=== PATIENT | female | born 1995 | race Hispanic/Latino ===

== ENCOUNTER 2017-11-19 18:07 | Emergency (ER) | payer SELFPAY ==
[2017-11-19 18:16] VITALS: BP 123/90; PULSE 78; RESP 16; TEMP 97.8; O2SAT 99
[2017-11-19 21:43] LABS: MEAN CELL VOLUME 88.6 fl (81.0-99.0); MEAN CORPUSCULAR HEMOGLOBIN 29.6 pg (27.0-31.0); MEAN CORPUSCULAR HGB CONC 33.4 g/dL (33.0-37.0); RBC 4.38 Mil/uL (3.80-5.20); RED CELL DISTRIBUTION WIDTH 12.7 % (11.5-14.5); WHITE BLOOD COUNT 8.6 K/uL (4.8-10.8)
--- NOTE | 2017-11-19 21:54 | ED PDOC ---
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 Patient admits to occasional dizziness but denies weakness, headache, or vision change. PMD: None Provided Past Medical History Reviewed: Historical Data, Nursing Documentation, Vital Signs Vital Signs: Last Vital Signs Temp 97.8 F 11/19/17 18:13 Pulse 78 11/19/17 18:13 Resp 16 11/19/17 18:13 BP 123/90 11/19/17 18:13 Pulse Ox 99 11/19/17 18:13 - Medical History Other PMH: bening brain cyst - Family History Family History: States: Unknown Family Hx - Allergies Allergies/Adverse Reactions: Allergies Allergy/AdvReac Type Severity Reaction Status Date / Time No Known Allergies Allergy Verified 11/19/17 18:12 Review of Systems ROS Statement: Except As Marked, All Systems Reviewed And Found Negative Neurological: Positive for: Dizziness (occasional), Other (tingling upper and lower extremities b/l) Physical Exam - Reviewed Nursing Documentation Reviewed: Yes Vital Signs Reviewed: Yes - Physical Exam Appears: Positive for: Well, Non-toxic, No Acute Distress Skin: Positive for: Normal Color, Warm, DRY Eye Exam: Positive for: EOMI, Normal appearance, PERRL ENT: Positive for: Normal ENT Inspection Neck: Positive for: Normal, Painless ROM Cardiovascular/Chest: Positive for: Regular Rate, Rhythm. Negative for: Murmur Respiratory: Positive for: Normal Breath Sounds. Negative for: Respiratory Distress Gastrointestinal/Abdominal: Positive for: Normal Exam, Bowel Sounds, Soft Neurologic/Psych: Positive for: Alert, correctional lieutenant II-XII, Oriented. Negative for: Motor/Sensory Deficits, Cerebellar Tests, Gait, Aphasia, Facial Droop - Laboratory Results Result Diagrams: 11/19/17 21:39 11/19/17 21:39 - ECG O2 Sat by Pulse Oximetry: 99 (RA) Pulse Ox Interpretation: Normal Medical Decision Making Medical Decision Making: Time: 21:25 Initial Impression: Paresthesias Initial Plan: --CT Head w/o Contrast --BMP --CBC CT Head: FINDINGS: Brain: 1 cm low density structure is noted in the left temporal lobe. No significant white matter disease.Streak artifact limits evaluation of the skull base. No evidence of acute intracranial hemorrhage. Correlate clinically. Ventricles: Unremarkable. No ventriculomegaly. Bones/joints: No displaced fracture. Soft tissues: Unremarkable. Sinuses: Unremarkable as visualized. No acute sinusitis. Mastoid air cells: Unremarkable as visualized. No mastoid effusion. IMPRESSION: Streak artifact limits evaluation of the skull base. No evidence of acute intracranial hemorrhage. Correlate clinically. Thank you for allowing us to participate in the care of your patient. Dictated and Authenticated by: Rosita Colon 11/19/2017 11:03 PM Eastern Time ([place] & [place]) 2300 Pt informed of results, instructed to consume more potassium containing foods. Advised to f/u w/ her PMD and neuro as needed. Return precautions discussed. Scribe Attestation: Documented by Hermilo Allison & Karen Brannon, acting as scribes for Dr. Giacomo Matias MD. Provider Scribe Attestation: All medical record entries made by the Scribe were at my direction and personally dictated by me. I have reviewed the chart and agree that the record accurately reflects my personal performance of the history, physical exam, medical decision making, and the department course for this patient. I have also personally directed, reviewed, and agree with the discharge instructions and disposition. Disposition - Clinical Impression Clinical Impression: Paresthesia - Disposition Referrals: Desmond Shin MD [Medical Doctor] - Disposition Time: 23:00 Condition: STABLE Instructions: Paresthesia (ED) Forms: [facility] (Czech)
[2017-11-19 22:01] LABS: BLOOD UREA NITROGEN 11 mg/dl (7-17); CALCIUM 9.3 mg/dL (8.4-10.2); GFR AFRICAN-AMERICAN > 60; GFR NON-AFRICAN AMERICAN > 60
--- NOTE | 2017-11-20 09:25 | CT ---
PROCEDURE: CT HEAD WITHOUT CONTRAST. HISTORY: hx of "benign brain cyst", numbness in extrems COMPARISON: None available. TECHNIQUE: Axial computed tomography images were obtained through the head/brain without intravenous contrast. Radiation dose: Total exam DLP = 8 6 mGy-cm. This CT exam was performed using one or more of the following dose reduction techniques: Automated exposure control, adjustment of the mA and/or kV according to patient size, and/or use of iterative reconstruction technique. FINDINGS: HEMORRHAGE: No intracranial hemorrhage. BRAIN: In the left temporal lobe a 8 mm hypodense lesion compatible with a cystic lesion as the history states. A smaller CSF like focus near the extreme tip of the right posterior ventricle is noted and may be a developmental variant. No mass effect or edema. No atrophy or chronic microvascular ischemic changes. VENTRICLES: Unremarkable. No hydrocephalus. CALVARIUM: Unremarkable. PARANASAL SINUSES: Unremarkable as visualized. No significant inflammatory changes. MASTOID AIR CELLS: Unremarkable as visualized. No inflammatory changes. OTHER FINDINGS: Extensive dural calcifications are noted IMPRESSION: Left frontal lobe 8 mm hypodense lesion compatible with a cystic lesion as clinical history suggests. Should the patient provided a outside study which showed this finding, and subsequent addendum can be issued comparing the 2 exams. No comment can be issued regarding enhancement as no contrast was requested or administered at this setting other finding as detailed above bordering the most posterior right ventricle -this also can be compare with prior outside studies if provided. Neither finding is associated with any hemorrhage or mass effect. Comments: Preliminary report per Vrad compatible with this report.
== END 2017-11-19 23:30 | disposition home or self-care (01) ==
LOC: H.ER 18:07
DX: R20.2 Paresthesia of skin (principal)